=== PATIENT | male | born 1965 | race Caucasian/White ===

== ENCOUNTER 2019-04-10 21:18 | Emergency (ER) | payer SELFPAY ==
[2019-04-10] MEDS ORDERED: Fluorescein Opthalmic Strip ONE (21:32)
[2019-04-10] MEDS ORDERED: Tetracaine 0.5% OPHTH SOLN/PF 4 ML BOT ONE (21:32)
== END 2019-04-10 21:50 | disposition home or self-care (01) ==
LOC: BURERS 21:18
DX: T15.11XA Foreign body in conjunctival sac, right eye, initial encounter (principal); W22.8XXA Striking against or struck by other objects, initial encounter
CPT/HCPCS: 99283